=== PATIENT | female | born 1975 | race Caucasian/White ===

== ENCOUNTER 2016-10-14 13:46 | Inpatient (IN) ==
--- NOTE | 2016-10-14 14:19 | Emergency Department Note ---
Disposition Clinical Impression: Suicidal ideation Depression Qualifiers: Depression Type: unspecified Qualified Code(s): F32.9 - Major depressive disorder, single episode, unspecified Disposition: Admitted As Inpatient Condition: Fair Referrals: NO,PCP [Primary Care Provider] - Forms: ED Satisfaction Letter Time of Disposition: 16:31 Psych HPI - General Chief Complaint: ED Psychiatric Symptoms Stated Complaint: SI Time Seen by Provider: 10/14/16 14:06 Source: patient, other Mode of arrival: private vehicle Limitations: no limitations Nursing Notes Reviewed: Yes Vital Signs Reviewed: Yes - History of Present Illness Pt complaint: suicidal ideation, feels depressed Onset (ago): day(s) Duration: constant History of similar episodes: Yes Improves with: none Worsens with: none Associated Psychiatric Symptoms: depression, suicidal ideation Associated symptoms: Reports: denies other symptoms Traumatic symptoms: denies traumatic injury Treatments prior to arrival: none Self harm or harm to others: admits thoughts of self harm, denies having a plan - Related Data Home Medications Medication Instructions Recorded Confirmed Pantoprazole Sodium [Protonix] 40 mg PO DAILY 01/07/16 01/07/16 Allergies Allergy/AdvReac Type Severity Reaction Status Date / Time Amoxicillin Allergy Severe Difficulty Verified 01/07/16 07:10 Breathing All systems ED: reviewed and negative except as stated. Constitutional: Denies: fever, chills ENT ED: Denies: ear pain, throat pain, congestion Cardiovascular: Denies: chest pain Respiratory: Denies: dyspnea Gastrointestinal: Denies: abdominal pain Integumentary: Denies: rash Neurological: Denies: headache Past Medical History - Past Medical History Attestation: Yes The following information was validated with the patient. 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 Absent : tenderness - Respiratory Respiratory exam: Present: normal lung sounds bilaterally. Absent: respiratory distress, wheezes - Cardiovascular Cardiovascular exam: Present: regular rate, normal rhythm, normal heart sounds - Abdominal Exam Abdominal exam: Present: soft, Non-Tender - Extremities Exam Extremities exam: Present: normal inspection. Absent: tenderness, pedal edema - Neurological Exam Neurological exam: Present: alert, oriented X3 - Psychiatric Psychiatric exam: Present: normal affect, normal mood - Skin Skin exam: Present: warm, dry Course Course Narrative: Patient presents with a complaint of depression and suicidal ideation. She says been off for a while but worse over the past couple days. I asked her if she had a plan and her response was I always have a plan and then I asked her what her plan was to day and she said she does not have a plan today. She does have some prior history of suicide attempt in the past. Physical examination is unremarkable. We will get the labs and once she is medically cleared will consult psychiatry to evaluate. - Reevaluation(s) Reevaluation #1: Labs all look normal. I am medically clearing the patient for psychiatric consultation. Time: 15:03 Reevaluation #2: Psychiatry wants the patient admitted. They have asked me to put in a bed request and fill out a pink slip which I will do. Time: 16:28 Vital Signs Temperature 98.1 F 10/14/16 13:55 Pulse Rate 63 10/14/16 13:55 Respiratory Rate 16 10/14/16 13:55 Blood Pressure 123/85 10/14/16 13:55 O2 Sat by Pulse Oximetry 98 10/14/16 13:55 Temperature 98.1 F 10/14/16 13:55 Pulse Rate 63 10/14/16 14:00 Respiratory Rate 16 10/14/16 14:00 Blood Pressure 123/85 10/14/16 14:00 O2 Sat by Pulse Oximetry 98 10/14/16 14:00 Oxygen Delivery Oxygen Delivery Room Air Psych - Lab Data Result diagrams: 10/14/16 14:34 10/14/16 14:34 Lab Results 10/14/16 10/14/16 10/14/16 Range/Units 14:09 14:09 14:34 WBC 5.1 (4.3-11.1) K/mcL RBC 4.33 (3.82-4.97) M/mcL Hgb 12.3 (11.5-15.4) g/dL Hct 38.4 (35.3-44.9) % MCV 88.7 (83.0-100.0) fL MCH 28.4 (28.0-33.3) pg MCHC 32.0 (31.6-35.5) g/dL RDW 13.5 (11.5-14.5) % Plt Count 194 (140-400) K/mcL MPV 10.0 (9.4-12.4) fL Immature Gran % 0.2 (0-4) % Seg Neutrophils % 45.5 % Lymphocytes % 47.4 % Monocytes % 5.5 % Eosinophils % 0.8 % Basophils % 0.6 % Neutrophils # 2.3 (1.6-8.9) K/mcL Lymphocytes # 2.4 (0.6-4.6) K/mcL Monocytes # 0.3 (0.0-1.3) K/mcL Eosinophils # 0.0 (0.0-0.6) K/mcL Basophils # 0.0 (0.0-0.2) K/mcL Sodium (136-145) mEq/L Potassium (3.5-4.5) mEq/L Chloride (98-109) mEq/L Carbon Dioxide (19-29) mEq/L BUN (7-20) mg/dL Creatinine (0.57-1.11) mg/dL Est GFR ( Amer) (> 60) Est GFR (Non-Af Amer) (> 60) BUN/Creatinine Ratio (6-26) Glucose (70-99) mg/dL Calculated Osmolality (280-300) Calcium (8.6-10.8) mg/dL Total Bilirubin (0.2-1.2) mg/dL Direct Bilirubin (0.0-0.5) mg/dL Indirect Bilirubin (0.0-1.2) mg/dL AST (5-34) Units/L ALT (0-55) Units/L Alkaline Phosphatase (38-126) Units/L Serum Total Protein (6.0-8.3) g/dL Albumin (3.5-5.0) g/dL Globulin (2.4-3.5) g/dL Albumin/Globulin Ratio (1.1-2.2) TSH (0.350-4.840) mcIU/mL Urine Color Yellow (Yellow) Urine Clarity Cloudy A (Clear) Urine pH 6.5 (5.0-8.0) pH Units Ur Specific [place] 1.020 (1.010-1.025) Urine Protein Negative (Neg-Trace) mg/dL Urine Glucose (UA) Normal (Normal) mg/dL Urine Ketones Negative (Negative) mg/dL Urine Blood Negative (Negative) Urine Nitrite Negative (Negative) Urine Bilirubin Negative (Negative) Urine Urobilinogen Normal (Normal) mg/dL Ur Leukocyte Esterase Negative (Negative) Urine Microscopic RBC 0-3 (0-3) per hpf Urine Microscopic WBC 3-5 H (0-3) per hpf Ur Squamous Epith Cells Many H (None-Few) per lpf Urine Bacteria None Seen (None-Few) per hpf Hyaline Casts None Seen (None-Few) per lpf Salicylates (15-30) mg/dL Urine Opiates Screen Negative (Wvygij=400) ng/mL Acetaminophen (10-30) mcg/mL Ur Barbiturates Screen Negative (Ellktn=647) ng/mL Ur Phencyclidine Scrn Negative (Cutoff=25) ng/mL Ur Amphetamines Screen Negative (Vftqnn=1092) ng/mL U Benzodiazepines Scrn Negative (Jhzvnw=228) ng/mL Urine Cocaine Screen Negative (Cutoff= 300) ng/mL U Marijuana (THC) Screen Negative (Cutoff = 50) ng/mL Ethyl Alcohol (0-10) mg/dL 10/14/16 Range/Units 14:34 WBC (4.3-11.1) K/mcL RBC (3.82-4.97) M/mcL Hgb (11.5-15.4) g/dL Hct (35.3-44.9) % MCV (83.0-100.0) fL MCH (28.0-33.3) pg MCHC (31.6-35.5) g/dL RDW (11.5-14.5) % Plt Count (140-400) K/mcL MPV (9.4-12.4) fL Immature Gran % (0-4) % Seg Neutrophils % % Lymphocytes % % Monocytes % % Eosinophils % % Basophils % % Neutrophils # (1.6-8.9) K/mcL Lymphocytes # (0.6-4.6) K/mcL Monocytes # (0.0-1.3) K/mcL Eosinophils # (0.0-0.6) K/mcL Basophils # (0.0-0.2) K/mcL Sodium 142 (136-145) mEq/L Potassium 4.1 (3.5-4.5) mEq/L Chloride 110 H (98-109) mEq/L Carbon Dioxide 25 (19-29) mEq/L BUN 10 (7-20) mg/dL Creatinine 0.78 (0.57-1.11) mg/dL Est GFR ( Amer) > 60 (> 60) Est GFR (Non-Af Amer) > 60 (> 60) BUN/Creatinine Ratio 13 (6-26) Glucose 86 (70-99) mg/dL Calculated Osmolality 292 (280-300) Calcium 9.4 (8.6-10.8) mg/dL Total Bilirubin 0.4 (0.2-1.2) mg/dL Direct Bilirubin 0.2 (0.0-0.5) mg/dL Indirect Bilirubin 0.2 (0.0-1.2) mg/dL AST 15 (5-34) Units/L ALT 19 (0-55) Units/L Alkaline Phosphatase 94 (38-126) Units/L Serum Total Protein 7.3 (6.0-8.3) g/dL Albumin 3.6 (3.5-5.0) g/dL Globulin 3.7 H (2.4-3.5) g/dL Albumin/Globulin Ratio 1.0 L (1.1-2.2) TSH 2.058 (0.350-4.840) mcIU/mL Urine Color (Yellow) Urine Clarity (Clear) Urine pH (5.0-8.0) pH Units Ur Specific [place] (1.010-1.025) Urine Protein (Neg-Trace) mg/dL Urine Glucose (UA) (Normal) mg/dL Urine Ketones (Negative) mg/dL Urine Blood (Negative) Urine Nitrite (Negative) Urine Bilirubin (Negative) Urine Urobilinogen (Normal) mg/dL Ur Leukocyte Esterase (Negative) Urine Microscopic RBC (0-3) per hpf Urine Microscopic WBC (0-3) per hpf Ur Squamous Epith Cells (None-Few) per lpf Urine Bacteria (None-Few) per hpf Hyaline Casts (None-Few) per lpf Salicylates < 5.0 L (15-30) mg/dL Urine Opiates Screen (Tvrsuj=425) ng/mL Acetaminophen < 1.0 L (10-30) mcg/mL Ur Barbiturates Screen (Kndsav=410) ng/mL Ur Phencyclidine Scrn (Cutoff=25) ng/mL Ur Amphetamines Screen (Pvzbnx=0550) ng/mL U Benzodiazepines Scrn (Hllzjh=399) ng/mL Urine Cocaine Screen (Cutoff= 300) ng/mL U Marijuana (THC) Screen (Cutoff = 50) ng/mL Ethyl Alcohol < 10 (0-10) mg/dL Psychiatric Medical Clearance - Medical Clearance Checklist Does the patient have a NEW psychiatric condition?: No Any abnormalities indicating possible medical illness?: No Any history of medical issues?: No Medical History: No Social History Section defined Any abnormal vital signs prior to transfer?: No Current Vitals: Last Vital Signs Temp 98.1 F 10/14/16 13:55 Pulse 63 10/14/16 14:00 Resp 16 10/14/16 14:00 BP 123/85 10/14/16 14:00 Pulse Ox 98 10/14/16 14:00 Is the patient intoxicated or cognitively impaired?: No Psychiatric Lab Panel: Drug Levels and Toxicity 10/14/16 10/14/16 14:09 14:34 Urine Opiates Screen Negative Acetaminophen < 1.0 L Ur Barbiturates Screen Negative Ur Phencyclidine Scrn Negative Ur Amphetamines Screen Negative U Benzodiazepines Scrn Negative Urine Cocaine Screen Negative U Marijuana (THC) Screen Negative Ethyl Alcohol < 10 Any abnormalities on the physical exam?: No Any abnormal labs?: No Abnormal Labs: Abnormal lab results Chloride 110 mEq/L (98-109) H 10/14/16 14:34 Globulin 3.7 g/dL (2.4-3.5) H 10/14/16 14:34 Albumin/Globulin Ratio 1.0 (1.1-2.2) L 10/14/16 14:34 Urine Clarity Cloudy (Clear) A 10/14/16 14:09 Urine Microscopic WBC 3-5 per hpf (0-3) H 10/14/16 14:09 Ur Squamous Epith Cells Many per lpf (None-Few) H 10/14/16 14:09 Salicylates < 5.0 mg/dL (15-30) L 10/14/16 14:34 Acetaminophen < 1.0 mcg/mL (10-30) L 10/14/16 14:34 Does the patient require durable medical equiptment?: No Is the patient ambulatory?: Yes Is the patient a fall risk?: No Has the patient been medically cleared?: Yes Any acute medical condition require Tx prior to transfer?: No Statement of Medical Clearance: I have evaluated the patient, reviewed diagnostic information, and certify that the patient's medical condition is sufficiently stable that transfer to the psychiatric unit does not pose a significant risk of deterioration.
[2016-10-14 14:29] LABS: Bilirubin,Urine Negative (Negative); Blood,Urine Negative (Negative); Clarity,Urine Cloudy (Clear); Color,Urine Yellow (Yellow); Glucose,Urine (UA) Normal (Normal); Ketones,Urine Negative (Negative); Leukocyte Esterase,Urine Negative (Negative); Nitrite,Urine Negative (Negative); PH,Urine 6.5 pH Units (5.0-8.0); Protein,Urine Negative (Neg-Trace); Urobilinogen,Urine Normal (Normal)
[2016-10-14 14:30] LABS: Bacteria,Urine None Seen per hpf (None-Few); Hyaline Casts,Urine None Seen per lpf (None-Few); RBC,Urine 0-3 per hpf (0-3); Squamous Epithelial Cell,Urine Many per lpf (None-Few)
[2016-10-14 14:43] LABS: Amphetamine Screen,Urine Negative ng/mL (Cutoff=1000); Barbiturate Screen,Urine Negative ng/mL (Cutoff=200); Benzodiazepines Screen,Urine Negative ng/mL (Cutoff=200); Cannabinoid Screen,Urine Negative ng/mL (Cutoff = 50); Cocaine Screen,Urine Negative ng/mL (Cutoff= 300); Opiate Screen,Urine Negative ng/mL (Cutoff=300); Phencyclidine Screen,Urine Negative ng/mL (Cutoff=25)
[2016-10-14 14:45] LABS: Basophils % 0.6 %; Eosinophils % 0.8 %; Hematocrit 38.4 % (35.3-44.9); Hemoglobin 12.3 g/dL (11.5-15.4); Immature Granulocytes % 0.2 % (0-4); Lymphocytes # 2.4 K/mcL (0.6-4.6); Lymphocytes % 47.4 %; Mean Corpuscular Hemoglobin 28.4 pg (28.0-33.3); Mean Corpuscular Volume 88.7 fL (83.0-100.0); Monocytes # 0.3 K/mcL (0.0-1.3); Monocytes % 5.5 %; Neutrophils # 2.3 K/mcL (1.6-8.9); Platelet Count 194 K/mcL (140-400); Red Blood Count 4.33 M/mcL (3.82-4.97); Red Cell Distribution Width 13.5 % (11.5-14.5); Segmented Neutrophils % 45.5 %
[2016-10-14 14:56] LABS: Alanine Aminotransferase 19 Units/L (0-55); Albumin 3.6 g/dL (3.5-5.0); Alkaline Phosphatase 94 Units/L (38-126); Aspartate Amino Transferase 15 Units/L (5-34); BUN/Creatinine Ratio 13 (6-26); Bilirubin,Direct 0.2 mg/dL (0.0-0.5); Bilirubin,Indirect 0.2 mg/dL (0.0-1.2); Bilirubin,Total 0.4 mg/dL (0.2-1.2); Blood Urea Nitrogen 10 mg/dL (7-20); Calcium 9.4 mg/dL (8.6-10.8); Carbon Dioxide 25 mEq/L (19-29); Chloride 110 mEq/L (98-109); Globulin 3.7 g/dL (2.4-3.5); Glucose 86 mg/dL (70-99); Osmolality,Calculated 292 (280-300); Potassium 4.1 mEq/L (3.5-4.5); Sodium 142 mEq/L (136-145); Total Protein 7.3 g/dL (6.0-8.3); eGFR For African Americans > 60 (> 60); eGFR For Non-African Americans > 60 (> 60)
[2016-10-14 14:58] LABS: Acetaminophen < 1.0 mcg/mL (10-30); Ethanol < 10 mg/dL (0-10); Salicylate < 5.0 mg/dL (15-30)
[2016-10-14 15:16] LABS: Thyroid Stimulating Hormone 2.058 mcIU/mL (0.350-4.840)
[2016-10-14] MEDS ORDERED: Mag Hydrox/Al Hydrox/Simeth 30 ML UDC PO PRN (17:16)
[2016-10-14] MEDS ORDERED: Haloperidol Lactate 5 MG/ML VIAL IM PRN (17:16)
[2016-10-14] MEDS ORDERED: Acetaminophen 325 MG TABLET PO PRN (17:16)
[2016-10-14] MEDS ORDERED: MOM Conc 10 ML UD.LIQ PO PRN (17:16)
[2016-10-14] MEDS ORDERED: hydrOXYzine pamoate 25 MG CAPSULE PO PRN (17:16)
[2016-10-14] MEDS ORDERED: traZODone 50 MG TABLET PO PRN (17:16)
[2016-10-14] MEDS ORDERED: *HR* LORazepam 2 MG/ML VIAL IM PRN (17:16)
[2016-10-14] MEDS ORDERED: *HR* LORazepam 1 MG TABLET PO PRN (17:16)
--- NOTE | 2016-10-15 10:13 | Psychiatry History & Physical ---
Date of Encounter: 10/15/16 Time of Encounter: 10:06 History of Present Illness Patient Stated Chief Complaint: Depressed and suicidal Medicare Admission Attestation: For traditional Medicare patients the provided hospital inpatient services are reasonable and necessary and in the case of services not specified as inpatient -only under 42 CFR 419.22 (n), that they are appropriately provided as inpatient services in accordance 42 CFR 412.3. For Critical Access Hospital the patient may reasonably be expected to be discharged or transferred to a hospital within 96 hours after admission to the Critical Access Hospital. Admitted From: Emergency Dept History of Present Illness: Ms. Michele is a 41 year old female admitted from the emergency room for evaluation treatment of depression and suicidal ideation. 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 Recently Patient Had Been Feeling Depressed Experiencing Poor Motivation, Loneliness, Sadness and Hopelessness. 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 She Denies Any Substance Use or Alcohol and She Attend [employer] Activities. She Had 1 Suicide Attempt by Overdose When She Was 20 Years Old. Past Med Surg Social Fam HX - Past Medical History Medical history: no medical history - Past Psychiatric History Psychiatric history: Reports: depression, prior suicide attempt Past psychiatric history details: History of depression 16 years ago and history of suicide attempts by overdose when she was 20. Family psychiatric history: Unknown Family History of Suicide: Unknown - Past Surgical History Surgical History: , cholecystectomy, hysterectomy - Social History Smoking Status: Never smoker Smokeless Tobacco Status: No Alcohol use: none Drug use: none Medications & Allergies Estradiol 2 mg PO DAILY 10/14/16 [History] Allergies Amoxicillin Allergy (Severe, Verified 01/07/16 07:10) Difficulty Breathing Review of Systems Psychiatric: Reports: depression, anxiety, suicidal ideation Mental Status Exam Patient orientation: Yes Person, Yes Time, Yes Place Level of alertness: Alert Patient appearance: Appropriate, Well Groomed, Obese Behavior: calm, cooperative, guarded Psychomotor activity: Normal Eye contact: Maintains Eye Contact Mood description: Depressed Affect description: congruent with mood, full range, constricted Speech pattern: Normal rate, Normal rhythm, Normal tone Speech volume: Soft/Quiet Thought process: Linear, Goal Oriented Thought content: Yes Suicidal ideation, No Homicidal ideation, No Overt delusions Perceptual disturbances: No Auditory hallucinations, No Visual hallucinations Attention span: Capable of Focused Attention Memory description: Grossly Intact Patient reliability: Reliable Historian Intelligence estimate: Average Judgment: Limited Insight: Partial Results - Vital Signs Vital signs: Temp Pulse Resp BP Pulse Ox 97.4 F L 62 16 118/75 98 10/15/16 09:00 10/15/16 09:00 10/15/16 09:00 10/15/16 09:00 10/14/16 14:00 - Labs Labs: Laboratory Last Values WBC 5.1 K/mcL (4.3-11.1) 10/14/16 14:34 RBC 4.33 M/mcL (3.82-4.97) 10/14/16 14:34 Hgb 12.3 g/dL (11.5-15.4) 10/14/16 14:34 Hct 38.4 % (35.3-44.9) 10/14/16 14:34 MCV 88.7 fL (83.0-100.0) 10/14/16 14:34 MCH 28.4 pg (28.0-33.3) 10/14/16 14:34 MCHC 32.0 g/dL (31.6-35.5) 10/14/16 14:34 RDW 13.5 % (11.5-14.5) 10/14/16 14:34 Plt Count 194 K/mcL (140-400) 10/14/16 14:34 MPV 10.0 fL (9.4-12.4) 10/14/16 14:34 Immature Gran % 0.2 % (0-4) 10/14/16 14:34 Seg Neutrophils % 45.5 % 10/14/16 14:34 Lymphocytes % 47.4 % 10/14/16 14:34 Monocytes % 5.5 % 10/14/16 14:34 Eosinophils % 0.8 % 10/14/16 14:34 Basophils % 0.6 % 10/14/16 14:34 Neutrophils # 2.3 K/mcL (1.6-8.9) 10/14/16 14:34 Lymphocytes # 2.4 K/mcL (0.6-4.6) 10/14/16 14:34 Monocytes # 0.3 K/mcL (0.0-1.3) 10/14/16 14:34 Eosinophils # 0.0 K/mcL (0.0-0.6) 10/14/16 14:34 Basophils # 0.0 K/mcL (0.0-0.2) 10/14/16 14:34 Sodium 142 mEq/L (136-145) 10/14/16 14:34 Potassium 4.1 mEq/L (3.5-4.5) 10/14/16 14:34 Chloride 110 mEq/L (98-109) H 10/14/16 14:34 Carbon Dioxide 25 mEq/L (19-29) 10/14/16 14:34 BUN 10 mg/dL (7-20) 10/14/16 14:34 Creatinine 0.78 mg/dL (0.57-1.11) 10/14/16 14:34 Est GFR ( Amer) > 60 (> 60) 10/14/16 14:34 Est GFR (Non-Af Amer) > 60 (> 60) 10/14/16 14:34 BUN/Creatinine Ratio 13 (6-26) 10/14/16 14:34 Glucose 86 mg/dL (70-99) 10/14/16 14:34 Calculated Osmolality 292 (280-300) 10/14/16 14:34 Calcium 9.4 mg/dL (8.6-10.8) 10/14/16 14:34 Total Bilirubin 0.4 mg/dL (0.2-1.2) 10/14/16 14:34 Direct Bilirubin 0.2 mg/dL (0.0-0.5) 10/14/16 14:34 Indirect Bilirubin 0.2 mg/dL (0.0-1.2) 10/14/16 14:34 AST 15 Units/L (5-34) 10/14/16 14:34 ALT 19 Units/L (0-55) 10/14/16 14:34 Alkaline Phosphatase 94 Units/L (38-126) 10/14/16 14:34 Serum Total Protein 7.3 g/dL (6.0-8.3) 10/14/16 14:34 Albumin 3.6 g/dL (3.5-5.0) 10/14/16 14:34 Globulin 3.7 g/dL (2.4-3.5) H 10/14/16 14:34 Albumin/Globulin Ratio 1.0 (1.1-2.2) L 10/14/16 14:34 TSH 2.058 mcIU/mL (0.350-4.840) 10/14/16 14:34 Urine Color Yellow (Yellow) 10/14/16 14:09 Urine Clarity Cloudy (Clear) A 10/14/16 14:09 Urine pH 6.5 pH Units (5.0-8.0) 10/14/16 14:09 Ur Specific [place] 1.020 (1.010-1.025) 10/14/16 14:09 Urine Protein Negative mg/dL (Neg-Trace) 10/14/16 14:09 Urine Glucose (UA) Normal mg/dL (Normal) 10/14/16 14:09 Urine Ketones Negative mg/dL (Negative) 10/14/16 14:09 Urine Blood Negative (Negative) 10/14/16 14:09 Urine Nitrite Negative (Negative) 10/14/16 14:09 Urine Bilirubin Negative (Negative) 10/14/16 14:09 Urine Urobilinogen Normal mg/dL (Normal) 10/14/16 14:09 Ur Leukocyte Esterase Negative (Negative) 10/14/16 14:09 Urine Microscopic RBC 0-3 per hpf (0-3) 10/14/16 14:09 Urine Microscopic WBC 3-5 per hpf (0-3) H 10/14/16 14:09 Ur Squamous Epith Cells Many per lpf (None-Few) H 10/14/16 14:09 Urine Bacteria None Seen per hpf (None-Few) 10/14/16 14:09 Hyaline Casts None Seen per lpf (None-Few) 10/14/16 14:09 Salicylates < 5.0 mg/dL (15-30) L 10/14/16 14:34 Urine Opiates Screen Negative ng/mL (Njjhst=268) 10/14/16 14:09 Acetaminophen < 1.0 mcg/mL (10-30) L 10/14/16 14:34 Ur Barbiturates Screen Negative ng/mL (Livmvc=326) 10/14/16 14:09 Ur Phencyclidine Scrn Negative ng/mL (Cutoff=25) 10/14/16 14:09 Ur Amphetamines Screen Negative ng/mL (Yvcapi=3996) 10/14/16 14:09 U Benzodiazepines Scrn Negative ng/mL (Artnsk=498) 10/14/16 14:09 Urine Cocaine Screen Negative ng/mL (Cutoff= 300) 10/14/16 14:09 U Marijuana (THC) Screen Negative ng/mL (Cutoff = 50) 10/14/16 14:09 Ethyl Alcohol < 10 mg/dL (0-10) 10/14/16 14:34 Assessment and Plan (1) Depression, major, recurrent, moderate Current visit: Yes Status: Acute Plan: Admit inpatient for safety and stabilization, Close observation, Suicide Precautions per unit protocol, Encourage participation in unit milieu, Group Therapy, Monitor sleep, Monitor appetite Additional Plan: Discussed treatment plan was patient she responded well in the past to Zoloft. Will start patient on Zoloft 50 mg daily and evaluate her response and plan her discharge on follow-ups. Risks, benefits, side effects, alternatives discussed w/pt: Yes Patient agreeable to treatment: Yes
[2016-10-16 09:31] VITALS: BP 115/73
--- NOTE | 2016-10-16 13:31 | Discharge Summary ---
Date of Encounter: 10/16/16 Time of Encounter: 13:28 Diagnosis - Discharge Diagnosis (1) Depression, major, recurrent, moderate Status: Acute Medications - Discharge Medications Prescriptions: Sertraline [Zoloft] 50 mg PO DAILY #30 tablet Estradiol 2 mg PO DAILY 10/14/16 [History] Sertraline [Zoloft] 50 mg PO DAILY #30 tablet 10/16/16 [Rx] Allergies Amoxicillin Allergy (Severe, Verified 01/07/16 07:10) Difficulty Breathing Provider Date of admission: 10/14/16 16:37 Primary care physician: PCP NO Discharging clinician: Anant Ybarra Assessment and Plan - Patient/Caregiver Discharge Instructions Activity: resume usual activities as tolerated Diet: regular diet - Follow up Plan [facility] up with: [facility] [place] [Outside] - 10/27/16 12:30 pm (The above appointment is with Xochitl Mayfield. Please arrive 15 minutes early to complete the registration process.) Dana Ph.D.,[place] [Non-Partnered Physician] - 10/20/16 10:00 am (the above appointment is with Dr. Cortez for counseling.) Functional capacity at discharge: independent ambulation Overall status at discharge: Stable Disposition: Home, Self-Care Hospital Course Hospital course: Ms. Michele is a 41 year old female admitted from the emergency room for depression and suicidal ideation with a plan to overdose on amoxicillin and alcohol. Patient is allergic to amoxicillin. Patient reports depressed moods, poor sleep, poor energy, lack of motivation and loneliness. She feels helpless and hopeless. 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 Prior to admission patient was not taking any medication she also has never had any therapy or counseling. She is employed full-time, denies any use of substance or smoking or alcohol. Prior to discharge patient was medically stable and denies suicidal ideation she was future oriented and planning to see his therapist and continue on medication, Zoloft 50 mg daily. - Time Spent with Patient Total time spent providing and/or coordinating discharge services: Greater than 30 minutes Quality - Multiple Antipsychotics Patient discharged on 2 or more antipsychotic medications: No Procedures - Procedures Procedures: Medication Management, Crisis Stabilization, Supportive Therapy, Group Therapy, Psychoeducational Therapy Mental Status Exam - Mental Status Exam Patient orientation: Yes Person, Yes Time, Yes Place Level of alertness: Alert Patient appearance: Appropriate, Well Groomed, Obese Behavior: calm, cooperative, guarded Psychomotor activity: Normal Eye contact: Maintains Eye Contact Mood description: Euthymic/stable Affect description: congruent with mood, full range, constricted Speech pattern: Normal rate, Normal rhythm, Normal tone Speech Volume: Soft/Quiet Thought process: Linear, Goal Oriented Thought Content: Yes Intact, No Suicidal ideation, No Homicidal ideation, No Overt delusions Perceptual Disturbances: No Auditory hallucinations, No Visual hallucinations Judgment: Fair Insight: Partial
== END 2016-10-16 15:15 | disposition home or self-care (01) | DRG 885 ==
LOC: EMEROO 13:46 → 1ANU 16:37
PROVIDERS: ADMIT Psychiatry & Neurology Psychiatry; ATTEND Psychiatry & Neurology Psychiatry